=== PATIENT | female | born 1990 | race Caucasian/White ===

== ENCOUNTER 2021-11-19 12:18 | Emergency (ER) | payer BC, OTHER ==
--- NOTE | 2021-11-19 12:37 | ED Physician Documentation ---
PD HPI LOWER EXT INJURY - Stated complaint Stated Complaint: R ANKLE INJ - Chief complaint Chief Complaint: Trauma Ext - History obtained from History obtained from: Patient - History of Present Illness PD HPI LOW EXT INJURY LOCATION: Right, Ankle Type of injury: Fall, Twist Where injury occurred: Home Timing - onset: Yesterday Timing - duration: Days (1) Timing - details: Abrupt onset, Still present Improved by: Rest, Ice, Immobilization Worsened by: Moving, Palpating Associated symptoms: Swelling. No: Weakness, Numbness Contributing factors: No: Anticoagulated Similar symptoms before: Diagnosis (ankle sprain) Recently seen: Not recently seen - Additional information Additional information: Trip and twist yesterday with pain with weight bearing. Review of Systems Constitutional: denies: Fever Nose: denies: Congestion Respiratory: denies: Cough GI: denies: Vomiting PD PAST MEDICAL HISTORY - Present Medications Home Medications: Ambulatory Orders Medication Instructions Recorded Confirmed LORazepam [Ativan] 0.5 mg PO DAILY PM PRN 11/19/21 11/19/21 buPROPion HCL [Bupropion Xl] 150 mg PO DAILY PM 11/19/21 11/19/21 - Allergies Allergies/Adverse Reactions: Allergies Allergy/AdvReac Type Severity Reaction Status Date / Time Penicillins AdvReac Rash Verified 11/19/21 12:24 PD ED PE NORMAL - Vitals Vital signs reviewed: Yes (hypertensive ) - General General: Alert and oriented X 3, No acute distress, Well developed/nourished - HEENT HEENT: Atraumatic, PERRL, EOMI - Respiratory Respiratory: No respiratory distress - Derm Derm: Normal color, Warm and dry, No rash - Extremities Extremities: No deformity, No edema, Other (There is swelling and point tenderness over the right right talofibular ligament. There is no tenderness to the proximal fifth metatarsal. Distal neurovascular components are intact.) - Neuro Neuro: Alert and oriented X 3, packaging sales 2-12 intact, No motor deficit, No sensory deficit, Normal speech Eye Opening: Spontaneous Motor: Obeys Commands Verbal: Oriented GCS Score: 15 - Psych Psych: Normal mood, Normal affect Results - Vitals Vitals: Vital Signs - 24 hr 11/19/21 11/19/21 12:21 13:38 Temperature 36.6 C 36.5 C Heart Rate 97 84 Respiratory 14 16 Rate Blood Pressure 137/93 H 126/77 O2 Saturation 100 100 Oxygen O2 Source Room air - Rads (name of study) ankle Radiology: Prelim report reviewed (Impression: Unremarkable right ankle radiographs.), EMP read indepedently, See rad report Procedures - Splint (location) right ankle Splint applied by: Physician Type of splint: Ankle airsplint Other: Patient tolerated well, No complications, Neurovascular intact, Good alignment PD MEDICAL DECISION MAKING - ED course Complexity details: reviewed results, re-evaluated patient, considered differential, d/w patient ED course: 31-year-old female who is twisted her right ankle has pain over the talofibular ligament and x-ray without demonstration of fracture. She is placed into an ankle air stirrup. Departure - Departure Disposition: 01 Home, Self Care Clinical Impression: Right ankle sprain Qualifiers: Encounter type: initial encounter Involved ligament of ankle: anterior talofibular ligament Qualified Code(s): S93.491A - Sprain of other ligament of right ankle, initial encounter Condition: Stable Instructions: ED Sprain Ankle W X Ray Follow-Up: SHEILA KAMARA MD [Primary Care Provider] - Comments: Corinne today it looks like you have sprained your ankle and you appear to be getting along with the ankle stirrup well. Wear the ankle stirrup 18/02 for 2 weeks and then wear it when you are doing excessive physical activity as needed. Expect full recovery. Discharge Date/Time: 11/19/21 13:38
--- NOTE | 2021-11-19 13:06 | XRAY Report ---
PROCEDURE: Ankle 3 View RT INDICATIONS: Trauma TECHNIQUE: 3 views of the ankle were acquired. COMPARISON: None FINDINGS: Bones: No fractures or dislocations. Ankle mortise is normally aligned. No suspicious bony lesions . Soft tissues: No tibiotalar joint effusion. Achilles tendon appears normal. IMPRESSION: Unremarkable right ankle radiographs Reviewed by: Aamir Khan MD on 11/19/2021 12:05 PM AKJAMES Approved by: Aamir Khan MD on 11/19/2021 12:05 PM AKDT Station ID: [id number]
[2021-11-19 13:40] VITALS: BP 126/77
== END 2021-11-19 13:38 | disposition home or self-care (01) ==
LOC: ED 12:18
DX: S93.491A Sprain of other ligament of right ankle, initial encounter (principal); X50.1XXA Overexertion from prolonged static or awkward postures, initial encounter
CPT/HCPCS: 99282; 99283